=== PATIENT | male | born 1995 | race Caucasian/White ===

== ENCOUNTER 2017-10-07 23:32 | Emergency (ER) | payer OTHER ==
[2017-10-07 23:54] VITALS: BP 128/74; PULSE 98; BMI 83.7
[2017-10-07] MEDS ORDERED: SODIUM CHLORIDE 0.9% 1000 ML INFUS.BAG IV ONE (23:58)
[2017-10-07] MEDS ORDERED: ONDANSETRON 4 MG/2 ML VIAL IVPUSH ONE (23:58)
[2017-10-08] MEDS ORDERED: ONDANSETRON 4 MG/2 ML VIAL ONE (00:06)
[2017-10-08 00:32] LABS: BASOPHIL 0.3 % (0-2.0); EOSINOPHIL 0.5 % (0-4.5); MCH 27.5 pg (25.7-33.7); MCHC 34.1 g/dl (32.0-35.9); MEAN CELL VOLUME 80.8 fl (80-96); MEAN PLT VOLUME 8.2 fl (7.5-11.1); NEUTROPHILS 89.9 % (42.8-82.8); PLATELET COUNT 219 K/MM3 (134-434); WHITE BLOOD COUNT 10.2 K/mm3 (4.0-10.0)
[2017-10-08] MEDS ORDERED: ACETAMINOPHEN 325 MG TABLET (FP) PO ONE (00:32)
--- NOTE | 2017-10-08 00:34 | PDOC ---
History of Present Illness - General Chief Complaint: Vomiting/Diarrhea Stated Complaint: VOMITING Time Seen by Provider: 10/07/17 23:41 - History of Present Illness Initial Comments: 10/08/17 00:31 CHIEF COMPLAINT: vomiting, diarrhea HISTORY OF PRESENT ILLNESS: 22 yo M with no PMH presents to ED with cough x 3 days and persistent vomiting and diarrhea since this afternoon. Patient states he has had nonstop vomiting and diarrhea for the past few hours but denies any abdominal pain. Patient denies fever or chills at home. No recent travel or sick contacts. PAST MEDICAL HISTORY: Denies past medical history FAMILY HISTORY: Denies SOCIAL HISTORY: Denies tobacco, alcohol, illicit drug use. SURGICAL HISTORY: Denies ALLERGIES: No known drug allergies REVIEW OF SYSTEMS General/Constitutional: Denies fever or chills. Denies weakness, weight change. HEENT: Denies change in vision. Denies ear pain or discharge. Denies sore throat. Cardiovascular: Denies chest pain or shortness of breath. Respiratory: Denies cough, wheezing, or hemoptysis. Gastrointestinal: "Countless" episodes of vomiting and diarrhea today. Genitourinary: Denies dysuria, frequency, or change in urination. Musculoskeletal: Denies joint or muscle swelling or pain. Denies neck or back pain. Skin: Denies rash or easy bruising. PHYSICAL EXAM General Appearance: Well-appearing, appropriately dressed. No apparent distress. HEENT: EOMI, PERRLA. No conjunctival pallor. No photophobia, scleral icterus. Respiratory/Chest: Lungs CTAB. Cardiovascular: RRR. S1, S2. Gastrointestinal/Abdominal: Actively vomiting in ED. Hyperactive bowel sounds. Abdomen soft, non-distended. No tenderness or rebound tenderness. No organomegaly, pulsatile mass, guarding, hernia, hepatomegaly, splenomegaly. Musculoskeletal/Extremities: Normal inspection. FROM of all extremities, normal capillary refill. Pelvis Stable. No CVA tenderness. No tenderness to extremities, pedal edema, swelling, erythema or deformity. Integumentary: Appropriate color, dry, warm. No cyanosis, erythema, jaundice or rash Neurologic: option trader II-XII intact. Fully oriented, alert. Appropriate mood/affect. Motor strength 5/5. No appreciable EOM palsy, facial droop or sensory deficit. 10/08/17 00:32 10/08/17 00:45 Past History - Past Medical History Allergies/Adverse Reactions: Allergies Allergy/AdvReac Type Severity Reaction Status Date / Time No Known Allergies Allergy Verified 10/19/16 14:12 Home Medications: Ambulatory Orders Ondansetron [Zofran *Odt*] 8 mg SL TID PRN #21 od.tablet 10/08/17 COPD: No Hypercholesterolemia: Yes - Surgical History Appendectomy: Yes - Immunization History Immunization Up to Date: Yes - Suicide/Smoking/Psychosocial Hx Smoking History: Current some day smoker Have you smoked in the past 12 months: Yes Number of Cigarettes Smoked Daily: 3 Information on smoking cessation initiated: No Hx Alcohol Use: No Drug/Substance Use Hx: Yes Substance Use Type: Cocaine *Physical Exam - Vital Signs Last Vital Signs Temp Pulse Resp BP Pulse Ox 100.8 F H 98 H 19 128/74 100 10/07/17 23:40 10/07/17 23:40 10/07/17 23:40 10/07/17 23:40 10/07/17 23:40 ED Treatment Course - LABORATORY CBC & Chemistry Diagram: 10/08/17 00:00 10/08/17 00:23 - Medications Given in the ED: ED Medications Discontinued Medications Generic Name Dose Route Start Last Admin Trade Name Freq PRN Reason Stop Dose Admin Ondansetron HCl 8 mg 10/07/17 23:58 10/08/17 00:20 Zofran Injection IVPUSH 10/07/17 23:59 8 mg ONCE ONE Administration Sodium Chloride 1,000 ml 10/07/17 23:58 10/08/17 00:20 Normal Saline - IV 10/07/17 23:59 1,000 ml ONCE ONE Administration Medical Decision Making - Medical Decision Making 10/08/17 00:34 22 yo M with no PMH presents to ED with cough x 3 days and persistent vomiting and diarrhea since this afternoon VS notable for temp 100.8F. Patient has no abdominal tenderness and denies any pain. -CBC, CMP -IVF, Zofran, Tylenol 10/08/17 00:54 Patient reassessed after administration of medications; patient reports feeling better. Vomiting and diarrhea likely secondary acute gasteroenteritis. Advised patient to take medication as prescribed and follow up with PCP within the next week Advised patient of signs and symptoms for return to ED. Patient verbalized understanding and agrees to plan. *DC/Admit/Observation/Transfer Diagnosis at time of Disposition: Gastroenteritis - Discharge Dispostion Disposition: HOME Condition at time of disposition: Stable - Prescriptions Prescriptions: Ondansetron [Zofran *Odt*] 8 mg SL TID PRN #21 od.tablet PRN Reason: Nausea And/Or Vomiting - Referrals - Patient Instructions Printed Discharge Instructions: DI for Viral Gastroenteritis -- Adult, Norovirus Infection Additional Instructions: Please take medication as prescribed and drink plenty of fluids for continued hydration. Follow up with your primary care doctor next week. If you develop any severe abdominal pain, persistent vomiting despite medication, become very lethargic, or develop any new or worsening symptoms, please return to the ER. - Post Discharge Activity
[2017-10-08] MEDS ORDERED: ACETAMINOPHEN 325 MG TABLET (FP) ONE (00:37)
[2017-10-08 00:56] LABS: ALBUMIN 4.6 g/dl (3.4-5.0); ANION GAP 10 (8-16); CALCIUM 9.1 mg/dL (8.5-10.1); CO2 26 mmol/L (21-32); CREATININE 1.1 mg/dL (0.7-1.3); GLUCOSE,RANDOM 99 mg/dL (74-106); SGOT/AST 21 U/L (15-37); SGPT/ALT 33 U/L (12-78)
[2017-10-08 00:58] LABS: ALK PHOS 125 U/L (45-117); BILIRUBIN,TOTAL 0.6 mg/dL (0.2-1.0); TOT PROT 8.5 g/dl (6.4-8.2)
[2017-10-08 02:14] VITALS: TEMP 99.6
[2017-10-08] MEDS ORDERED: ONDANSETRON *ODT* 4 MG TABLET SL ONE (02:46)
[2017-10-08] MEDS ORDERED: ONDANSETRON *ODT* 4 MG TABLET ONE (02:51)
== END 2017-10-08 02:57 | disposition home or self-care (01) ==
LOC: JER 23:32
PROC: 3E0337Z Introduction of Electrolytic and Water Balance Substance into Peripheral Vein, Percutaneous Approach (ICD-10-PCS; principal; 2017-10-07)
PROC: 3E033GC Introduction of Other Therapeutic Substance into Peripheral Vein, Percutaneous Approach (ICD-10-PCS; 2017-10-07)
DX: K52.9 Noninfective gastroenteritis and colitis, unspecified (principal); F17.210 Nicotine dependence, cigarettes, uncomplicated; E78.00 Pure hypercholesterolemia, unspecified
CPT/HCPCS: 36415; 80053; 85025; 99283-25

== ENCOUNTER 2017-11-28 14:09 | Emergency (ER) | payer OTHER ==
[2017-11-28 14:23] VITALS: BP 137/65; PULSE 77; TEMP 98.6; BMI 37.2
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
[2017-11-28] MEDS ORDERED: KETOROLAC TROMETHAMINE 60 MG/2 ML VIAL IM ONE (15:05)
[2017-11-28] MEDS ORDERED: KETOROLAC TROMETHAMINE 60 MG/2 ML VIAL ONE (15:08)
== END 2017-11-28 15:22 | disposition home or self-care (01) ==
LOC: JERFT 14:09
PROC: 3E0233Z Introduction of Anti-inflammatory into Muscle, Percutaneous Approach (ICD-10-PCS; principal; 2017-11-28)
DX: M54.5 Low back pain (principal); M25.512 Pain in left shoulder; V43.52XA Car driver injured in collision with other type car in traffic accident, initial encounter; Y92.414 Local residential or business street as the place of occurrence of the external cause; Y93.89 Activity, other specified; Y99.8 Other external cause status
CPT/HCPCS: 99281-25